=== PATIENT | male | born 1980 | race Hispanic/Latino ===

== ENCOUNTER 2017-09-08 16:48 | Emergency (ER) | payer BC ==
[2017-09-08 17:06] VITALS: BMI 28.5
[2017-09-08] MEDS ORDERED: Tdap Vaccine 0.5 ml Vial (10-64 yrs) IM ONE ×2 (17:06→17:12)
[2017-09-08 17:10] VITALS: BP 143/75; PULSE 61; RESP 16; TEMP 97.6; O2SAT 100
--- NOTE | 2017-09-08 17:10 | ED PDOC ---
Upper Extremity Pain/Injury Time Seen by Provider: 09/08/17 16:57 Chief Complaint (Provider): Left finger injury History Per: Patient History/Exam Limitations: no limitations Current Symptoms Are (Timing): Still Present Additional Complaint(s): 36 year old left hand dominant male presents to the ED with laceration to left index finger. Patient was cutting bread when he cut his left index finger with knife by accident. Patient denies any acute pain, denies any numbness to affected area. Patient states tetanus is not up to date. PMD: none provided Past Medical History Reviewed: Historical Data, Nursing Documentation, Vital Signs - Medical History PMH: No Chronic Diseases - Surgical History Other surgeries: Left knee surgery - Family History Family History: States: No Known Family Hx - Living Arrangements Living Arrangements: With Family - Social History Current smoker - smoking cessation education provided: No Alcohol: Social Drugs: Denies - Immunization History Hx Tetanus Toxoid Vaccination: No (not up to date) - Allergies Allergies/Adverse Reactions: Allergies Allergy/AdvReac Type Severity Reaction Status Date / Time No Known Allergies Allergy Verified 09/08/17 17:05 Review of Systems ROS Statement: Except As Marked, All Systems Reviewed And Found Negative Musculoskeletal: Positive for: Other (Left index finger laceration) Physical Exam - Reviewed Nursing Documentation Reviewed: Yes Vital Signs Reviewed: Yes - Physical Exam Appears: Positive for: Well, Non-toxic, No Acute Distress Skin: Positive for: Normal Color. Negative for: Rash Eye Exam: Positive for: Normal appearance Extremity: Positive for: Normal ROM, Other (1 cm laceration noted to distal aspect of left index finger with mild active bleeding. Fingernail is intact.) Neurologic/Psych: Positive for: Alert, Oriented. Negative for: Motor/Sensory Deficits - ECG O2 Sat by Pulse Oximetry: 100 (RA) Pulse Ox Interpretation: Normal Medical Decision Making Medical Decision Making: Initial Impression: 36 y/o with left index finger laceration Initial Plan: Tetanus 0.5mL IM Lac repair See procedure note. Patient was given wound care instructions. Scribe Attestation: Documented by Jerod Marrufo acting as a scribe for Precious MCGARRY. Provider Scribe Attestation: All medical record entries made by the Scribe were at my direction and personally dictated by me. I have reviewed the chart and agree that the record accurately reflects my personal performance of the history, physical exam, medical decision making, and the department course for this patient. I have also personally directed, reviewed, and agree with the discharge instructions and disposition. Procedures - Laceration/Wound Repair Left Anterior Finger Wound Length (cm): 1 Wound's Depth, Shape: superficial Wound Explored: clean Betadine Prep?: Yes Anesthesia: 1% Lidocaine Volume Anesthetic (ccs): 4 Wound Debrided: minimal Wound Repaired With: Sutures Suture Size/Type: 5:0, nylon Number of Sutures: 3 Layer Closure?: No Wound Complexity: Simple Sterile Dressing Applied?: Yes Splint Applied?: No Disposition - Clinical Impression Clinical Impression: Finger laceration, Requires a booster tetanus - Patient ED Disposition Is Patient to be Admitted: No Counseled Patient/Family Regarding: Diagnosis, Need For Followup - Disposition Referrals: Kit Chapman MD [Staff Provider] - Disposition: Routine/Home Disposition Time: 17:36 Condition: STABLE Additional Instructions: KEEP WOUND CLEAN AND DRY. WASH DAILY WITH SOAP AND WATER AND APPLY NEOSPORIN ONCE PER DAY ONLY. ADVIL FOR PAIN NEEDED. SUTURE REMOVAL 10-14 DAYS. Instructions: Laceration Repair With Stitches (DC), Diphtheria and Tetanus Toxoids, and Acellular Pertussis Vaccine
== END 2017-09-08 17:45 | disposition home or self-care (01) ==
LOC: H.ER 16:48
DX: S61.211A Laceration without foreign body of left index finger without damage to nail, initial encounter (principal); W26.0XXA Contact with knife, initial encounter; Y93.G1 Activity, food preparation and clean up; Z23 Encounter for immunization